=== PATIENT | female | born 1975 | race African-American/Black ===

== ENCOUNTER 2021-03-01 07:55 | Outpatient (CLI) | payer OTHER | END 2021-03-01 07:56 | disposition home or self-care (01) | LOC: LAB 07:55 | PROVIDERS: ATTEND Obstetrics & Gynecology | DX: Z20.818 Contact with and (suspected) exposure to other bacterial communicable diseases (principal); Z20.828 Contact with and (suspected) exposure to other viral communicable diseases ==